=== PATIENT | female | born 1980 | race Caucasian/White ===

== ENCOUNTER → 2025-09-26 | Outpatient (CLI) | payer BC, SELFPAY ==
--- NOTE | 2025-09-26 16:30 | XR_ITS ---
Examination: Screening digital mammography, bilateral Computer aided detection 3-D breast Tomosynthesis, bilateral Date and time of exam: September 26, 2025, 1601 hours, compared to mammograms dating to 07/01/2016 Indication: Screening Technique: Nonmagnified MLO, CC views of the breasts to been obtained, reconstructed from 3-D Tomosynthesis images. R2 computer aided detection program utilized for evaluation of suspicious masses and/or abnormal calcifications. 3-D Tomosynthesis images obtained. Findings: Scattered areas of fibroglandular density 6 mm focal asymmetry posterior depth nipple level CC view Benign calcifications Impression: BI-RADS Category 0: Incomplete: Need additional imaging evaluation 6 mm focal asymmetry posterior depth nipple level CC view, recommend follow-up spot tomographic cc view, spot tomographic MLO view upper left breast posterior depth, left breast sonography to complete work-up
== END | disposition home or self-care (01) ==
LOC: CDIM 15:42
PROVIDERS: Referring Provider Nurse Practitioner Family; Visit Provider Nurse Practitioner Family
DX: Z12.31 Encounter for screening mammogram for malignant neoplasm of breast (principal); N64.89 Other specified disorders of breast; R92.8 Other abnormal and inconclusive findings on diagnostic imaging of breast
CPT/HCPCS: 77063; 77067